=== PATIENT | female | born 1985 | race African-American/Black ===

== ENCOUNTER 2023-01-24 05:59 | Observation (INO) | payer SELFPAY ==
[~2023-01-24] VITALS: Ht 157.5 cm; Wt 72.6 kg
[2023-01-24] MEDS ORDERED: PREN1TAB23 PO (07:47)
== END 2023-01-24 09:08 | disposition home or self-care (01) ==
LOC: 8 EST LDRP 05:59
PROVIDERS: ADMIT Obstetrics & Gynecology; ATTEND Obstetrics & Gynecology
DX: O26.893 Other specified pregnancy related conditions, third trimester (principal); R10.9 Unspecified abdominal pain; Z3A.29 29 weeks gestation of pregnancy
CPT/HCPCS: 59025; 76818; 76805; G0378 ×2; 99281

== ENCOUNTER 2023-12-15 04:04 | Emergency (ER) | payer SELFPAY ==
[~2023-12-15] VITALS: Ht 157.5 cm; Wt 75.0 kg
[~2023-12-15 04:04] MED LIST: PREN1TAB23 PO
[2023-12-15 04:15] VITALS: O2SAT 98
[2023-12-15] MEDS ORDERED: GUAI-450 MT (08:44)
[2023-12-15 09:20] VITALS: BP 148/87; PULSE 91; RESP 18; TEMP 98.1
== END 2023-12-15 09:54 | disposition home or self-care (01) ==
LOC: ER 04:04
DX: J06.9 Acute upper respiratory infection, unspecified (principal); I10 Essential (primary) hypertension; Z20.822 Contact with and (suspected) exposure to COVID-19; Z98.890 Other specified postprocedural states
CPT/HCPCS: 87426; 99283

== ENCOUNTER 2024-04-01 22:20 | Emergency (ER) | payer SELFPAY ==
[~2024-04-01] VITALS: Ht 165.1 cm; Wt 79.2 kg
[~2024-04-01 22:20] MED LIST changes: +GUAI-450 MT
[2024-04-01 22:22] VITALS: O2SAT 99
[2024-04-01 22:24] VITALS: BP 131/90; PULSE 109; RESP 18; TEMP 98.2; O2SAT 99
[2024-04-01 23:43] LABS: CLARITY URINE CLEAR (CLEAR); COLOR URINE YELLOW (YELLOW); GLUCOSE URINE NEGATIVE (NEGATIVE); KETONES URINE NEGATIVE (NEGATIVE); LEUKOCYTE ESTERASE URINE NEGATIVE (NEGATIVE); NITRITE URINE NEGATIVE (NEGATIVE); OCCULT BLOOD URINE NEGATIVE (NEGATIVE); PROTEIN URINE 2+ (NEGATIVE); SPECIFIC GRAVITY URINE 1.021 (1.005-1.030)
[2024-04-01] MEDS ORDERED: ACETAMINOPHEN 325MG TABLET PO ONE (23:45)
[2024-04-02 00:08] LABS: CHLORIDE 108 mEq/L (98-107); POTASSIUM 3.3 mEq/L (3.5-5.1); SODIUM 139 mEq/L (136-145)
[2024-04-02 00:09] LABS: BASOPHILS % 0.3 % (0.0-2.0); CALCIUM 8.6 mg/dL (8.7-10.4); CARBON DIOXIDE 27 mEq/L (21-32); EOSINOPHILS % 0.3 % (0.0-5.0); HEMATOCRIT. 32.1 % (36.0-48.0); HEMOGLOBIN. 10.8 g/dL (12.0-16.0); LYMPHOCYTES % 14.4 % (20.0-50.0); MEAN CORPUSCULAR HGB CONC 33.7 g/dL (31.0-37.0); MEAN PLATELET VOLUME 8.8 fl (7.4-10.4); MONOCYTES % 5.9 % (2.0-8.0); NEUTROPHILS % 79.1 % (40.0-76.0); PLATELET 221 x1000/uL (130-400); RED BLOOD CELL COUNT 3.28 mill/uL (4.2-5.4); RED CELL DISTRIBUTION WIDTH 13.2 % (11.6-14.6); WHITE BLOOD COUNT 11.4 x1000/uL (4.5-11.0)
[2024-04-02 00:14] LABS: CREATININE 0.7 mg/dL (0.6-1.0); GLUCOSE 101 mg/dL (70-105); UREA NITROGEN BLOOD 8 mg/dL (9-23)
[2024-04-02 00:18] LABS: B-HCG QUANTITATIVE > 1000 mIU/mL (<3)
[2024-04-02 00:49] LABS: BACTERIA URINE TRACE; RBC URINE 0-2 /hpf (0-2); SQUAMOUS EPITHELIAL CELL URINE FEW /lpf (RARE/1+)
[2024-04-02] MEDS: NITROFURANTOIN 100MG M/M CAPSULE PO NR (01:47)
[2024-04-02] MEDS: POTASSIUM CHLORIDE 20MEQ TABLET SR PO NR (01:48)
[2024-04-02] MEDS: ACETAMINOPHEN 325MG TABLET PO NR (01:48)
[2024-04-02] MEDS ORDERED: NIFE-33 MT (01:57)
[2024-04-02] MEDS ORDERED: NITR-87 MT (01:58)
[2024-04-02] MEDS ORDERED: NIFEDIPINE 10MG CAPSULE PO ONE (02:00)
== END 2024-04-02 02:47 | disposition left against medical advice (07) ==
LOC: ER 22:20
DX: O44.12 Complete placenta previa with hemorrhage, second trimester (principal); O26.892 Other specified pregnancy related conditions, second trimester; O99.512 Diseases of the respiratory system complicating pregnancy, second trimester; I10 Essential (primary) hypertension; R10.2 Pelvic and perineal pain; J45.909 Unspecified asthma, uncomplicated; Z98.890 Other specified postprocedural states; Z3A.22 22 weeks gestation of pregnancy
CPT/HCPCS: 80048; 81003; 84702; 85025; 86850; 86900; 86901; 36415; 76805; 99291; Z7610

== ENCOUNTER 2024-06-12 00:44 | Emergency (ER) | payer SELFPAY ==
[~2024-06-12] VITALS: Ht 162.6 cm; Wt 83.0 kg
[~2024-06-12 00:44] MED LIST changes: +NIFE-33 MT; +NITR-87 MT
[2024-06-12 00:57] VITALS: O2SAT 99
[2024-06-12] MEDS: MAGNESIUM 4 G PREMIX 100 ML IV ONE (01:16)
[2024-06-12 01:41] LABS: BASOPHILS % 0.2 % (0.0-2.0); EOSINOPHILS % 0.4 % (0.0-5.0); HEMOGLOBIN. 10.2 g/dL (12.0-16.0); LYMPHOCYTES % 17.7 % (20.0-50.0); MEAN CORPUSCULAR HEMOGLOBIN 30.4 pg (28.0-32.0); MEAN CORPUSCULAR HGB CONC 32.8 g/dL (31.0-37.0); MEAN CORPUSCULAR VOLUME 92.8 fL (81.0-99.0); MEAN PLATELET VOLUME 8.2 fl (7.4-10.4); MONOCYTES % 5.6 % (2.0-8.0); NEUTROPHILS % 76.1 % (40.0-76.0); PLATELET 202 x1000/uL (130-400); RED BLOOD CELL COUNT 3.34 mill/uL (4.2-5.4); RED CELL DISTRIBUTION WIDTH 13.2 % (11.6-14.6)
[2024-06-12 01:46] LABS: CHLORIDE 105 mEq/L (98-107); POTASSIUM 3.3 mEq/L (3.5-5.1); SODIUM 138 mEq/L (136-145)
[2024-06-12 01:47] LABS: CARBON DIOXIDE 26 mEq/L (21-32)
[2024-06-12 01:52] LABS: CREATININE 0.5 mg/dL (0.6-1.0); GLUCOSE 95 mg/dL (70-105); UREA NITROGEN BLOOD 6 mg/dL (9-23)
[2024-06-12 02:35] VITALS: BP 132/75; PULSE 97; RESP 19; TEMP 36.66960; O2SAT 100
== END 2024-06-12 02:42 | disposition short-term general hospital (02) ==
LOC: ER 00:44
DX: O13.3 Gestational [pregnancy-induced] hypertension without significant proteinuria, third trimester (principal); O46.93 Antepartum hemorrhage, unspecified, third trimester; O99.513 Diseases of the respiratory system complicating pregnancy, third trimester; J45.909 Unspecified asthma, uncomplicated; F12.10 Cannabis abuse, uncomplicated; Z3A.34 34 weeks gestation of pregnancy; Z79.899 Other long term (current) drug therapy
CPT/HCPCS: 80048; 85025; 86850; 86900; 86901; 36415; 76805; 76817; 96365; 99285; J3475; Z7610

== ENCOUNTER 2025-02-04 22:56 | Emergency (ER) | payer MEDICAID ==
[~2025-02-04] VITALS: Ht 167.6 cm; Wt 78.0 kg
[2025-02-04 23:02] VITALS: TEMP 37.2; O2SAT 95
[2025-02-05] MEDS: SODIUM CHLORIDE 0.9% 1,000 ML IV ONE (00:11)
[2025-02-05 00:17] LABS: BASOPHILS % 0.5 % (0.0-2.0); EOSINOPHILS % 0.3 % (0.0-5.0); HEMATOCRIT. 36.8 % (36.0-48.0); HEMOGLOBIN. 12.1 g/dL (12.0-16.0); LYMPHOCYTES % 12.6 % (20.0-50.0); MEAN PLATELET VOLUME 8.6 fl (7.4-10.4); MONOCYTES % 4.7 % (2.0-8.0); NEUTROPHILS % 81.9 % (40.0-76.0); PLATELET 285 x1000/uL (130-400); RED BLOOD CELL COUNT 3.86 mill/uL (4.2-5.4); RED CELL DISTRIBUTION WIDTH 13.1 % (11.6-14.6)
[2025-02-05 00:26] LABS: HCG SCREEN NEGATIVE
[2025-02-05 00:28] LABS: CREATININE 1.1 mg/dL (0.6-1.0)
[2025-02-05] MEDS: CLONIDINE 0.1MG TABLET PO ONE (00:28)
[2025-02-05 00:29] LABS: ETHANOL BLOOD < 10 mg/dL (<10); UREA NITROGEN BLOOD 13 mg/dL (9-23)
[2025-02-05] MEDS: METOCLOPRAMIDE HCL 10MG/2ML VIAL IV ONE (00:29)
[2025-02-05 00:30] LABS: ASPARTATE AMINOTRANSFERASE 28 IU/L (<34)
[2025-02-05] MEDS: KETOROLAC 15MG/ML VIAL IV ONE (00:30)
[2025-02-05 00:31] LABS: BILIRUBIN TOTAL 0.7 mg/dL (0.1-1.0); PROTEIN TOTAL 7.4 g/dL (6.0-8.3)
[2025-02-05 01:12] VITALS: BP 138/88; PULSE 106; RESP 16; O2SAT 96
== END 2025-02-05 01:38 | disposition home or self-care (01) ==
LOC: ER 22:56
DX: G40.909 Epilepsy, unspecified, not intractable, without status epilepticus (principal); F41.0 Panic disorder [episodic paroxysmal anxiety]; J45.909 Unspecified asthma, uncomplicated; F12.90 Cannabis use, unspecified, uncomplicated; I10 Essential (primary) hypertension; Z98.890 Other specified postprocedural states; Z79.899 Other long term (current) drug therapy
CPT/HCPCS: 36415; 93005; 99284; 80053; 80320; 84703; 85025; 96374; 96375; J7030; J1885; J2765; G0480

== ENCOUNTER 2025-04-17 12:37 | Emergency (ER) | payer OTHER, MEDICAID ==
[~2025-04-17] VITALS: Ht 167.6 cm; Wt 66.0 kg
[2025-04-17 12:38] VITALS: O2SAT 99
[2025-04-17] MEDS ORDERED: KETOROLAC 15MG/ML VIAL IM ONE (13:00)
[2025-04-17] MEDS: HYDROCODONE/ACETAMINOPHEN 5/325MG TABLET PO ONE (13:10)
[2025-04-17 13:48] LABS: HCG SCREEN NEGATIVE
[2025-04-17] MEDS ORDERED: IBUP-2030 MT (15:23)
[2025-04-17] MEDS: KETOROLAC 15MG/ML VIAL IM NR (15:23)
[2025-04-17 16:10] VITALS: BP 143/99; PULSE 91; RESP 15; TEMP 36.7; O2SAT 100
== END 2025-04-17 16:15 | disposition home or self-care (01) ==
LOC: ER 12:37
DX: S50.812A Abrasion of left forearm, initial encounter (principal); J45.909 Unspecified asthma, uncomplicated; I10 Essential (primary) hypertension; Z86.73 Personal history of transient ischemic attack (TIA), and cerebral infarction without residual deficits; Z98.890 Other specified postprocedural states; Z79.899 Other long term (current) drug therapy; V43.52XA Car driver injured in collision with other type car in traffic accident, initial encounter; Y93.89 Activity, other specified; Y92.410 Unspecified street and highway as the place of occurrence of the external cause; Y99.8 Other external cause status
CPT/HCPCS: 99285; 70450; 84703; 73080; 73110; 73130; 73560; 72125; 71250; 74176; 96372; J1885